=== PATIENT | female | born 1965 | race Caucasian/White ===

== ENCOUNTER → 2020-03-25 16:26 | Outpatient (CLI) | payer BC, SELFPAY ==
--- NOTE | ~2020-03-25 | MM_ITS ---
EXAMINATION: MM screening [facility] BI w [place] HISTORY: Screening mammogram TECHNIQUE: Craniocaudal and mediolateral oblique 3-D tomosynthesis images were obtained and synthetic 2-D images were generated. CAD analysis was submitted and interpreted. COMPARISON: 03/20/2019, 07/14/2018, 07/10/2017 BREAST PARENCHYMAL COMPOSITION: There are scattered areas of fibroglandular density. FINDINGS: There is no evidence of suspicious mass, calcification, or architectural distortion to sugg est malignancy in either breast. There has been no suspicious interval change. IMPRESSION: 1. No mammographic evidence of malignancy. 2. Recommend routine screening mammography in one year. BI-RADS Category 1: Negative Reviewed, dictated and finalized at location A.
== END ==
PROVIDERS: Visit Provider Obstetrics & Gynecology Gynecology
DX: Z12.31 Encounter for screening mammogram for malignant neoplasm of breast (principal)
CPT/HCPCS: 77063; 77067

== ENCOUNTER → 2021-03-27 16:25 | Outpatient (CLI) | payer BC, SELFPAY ==
--- NOTE | ~2021-03-27 | MM_ITS ---
EXAMINATION: MM screening [facility] BI w [place] HISTORY: Screening mammogram TECHNIQUE: Craniocaudal and mediolateral oblique 3-D tomosynthesis images were obtained and synthetic 2-D images were generated. CAD analysis was submitted and interpreted. COMPARISON: 03/25/2020, 03/20/2019, 07/14/2018 BREAST PARENCHYMAL COMPOSITION: There are scattered areas of fibroglandular density. FINDINGS: There is no evidence of suspicious mass, calcification, or architectural distortion to sugg est malignancy in either breast. There has been no suspicious interval change. IMPRESSION: 1. No mammographic evidence of malignancy. 2. Recommend routine screening mammography in one year. BI-RADS Category 1: Negative Reviewed, dictated and finalized at location A.
== END ==
PROVIDERS: Visit Provider Obstetrics & Gynecology Gynecology
DX: Z12.31 Encounter for screening mammogram for malignant neoplasm of breast (principal)
CPT/HCPCS: 77063; 77067

== ENCOUNTER → 2021-05-14 18:12 | Outpatient (CLI) | payer BC, SELFPAY ==
--- NOTE | ~2021-05-14 | DEXA_ITS ---
Bone Density Report Name: Sandra Reyes Age: 55 Sex: Female Ethnicity: White Date of : 1965 Indication: postmenopausal; screening for osteoporosis; Referring Provider: DUNG MUÑIZ Study: Bone densitometry was performed. Exam Date: May 14, 2021 Accession number: [id number] Bone Density: Region BMD T-score Z-score Classification AP Spine (L1-L4) 1.315 2.4 3.6 Normal Femoral Neck (Left) 0.992 1.3 2.4 Normal Total Hip (Left) 1.275 2.7 3.4 Normal Femoral Neck (Right) 0.991 1.3 2.4 Normal Total Hip (Right) 1.179 1.9 2.7 Normal Total Hip Mean 1.227 2.3 3.1 Normal World Health Organization criteria for BMD impression classify patients as: Normal (T-score at or above -1.0), Osteopenia (T-score between -1.0 and -2.5), or Osteoporosis (T-score at or below -2.5). 10-year Fracture Risk: FRAX not reported because: All T-scores for Spine Total, Hip Total, Femoral Neck at or above -1.0 Previous Exams: Region Exam Age BMD T-score BMD Change BMD Change Date g/cm2 vs Baseline vs Previous AP Spine(L1-L4) 05/14/2021 55 1.315 2.4 0.066* 0.066* 07/31/2016 50 1.250 1.8 Total Hip(Left) 05/14/2021 55 1.275 2.7 -0.006 -0.006 07/31/2016 50 1.281 2.8 Total Hip(Right) 05/14/2021 55 1.179 1.9 -0.049* -0.049* 07/31/2016 50 1.228 2.3 *Denotes significance at 95% confidence level, LSC for AP Spine = 0.022 g/cm2, LSC for Total Hip = 0.027 g/cm2 Clinical Information Provided by Patient: Has used the following medications: Vitamin D, Calcium, MTV Patient maximum height was 69.5 Menopause Age: 49 No regular weight bearing exercise Does not regularly consume dairy products Drinks caffeinated beverages Onset of menses at age 10 Number of children 1 Impression: The patient has normal bone mass. The BMD for the Total Hip(Right) decreased, changing by -0.049 since the last DXA exam. Discussion: LOW RISK OF FRACTURE; BONE DENSITY IS WELL ABOVE THE MINIMUM DESIRABLE LEVEL AND ABOVE AVERAGE FOR AGE AND SEX AT ALL SKELETAL SITES TESTED. This person's bone density is above expected limits for age and sex. This is rarely clinically significant, but should be pursued if there are significant musculoskeletal complaints. The patient should follow a healthful lifestyle (good nutrition with adequate calcium and vitamin D, and appropriate weight-bearing exercise). Follow-Up: Consider repe
== END ==
PROVIDERS: Visit Provider Obstetrics & Gynecology Gynecology
DX: Z78.0 Asymptomatic menopausal state (principal)
CPT/HCPCS: 77080

== ENCOUNTER → 2021-09-17 07:54 | Outpatient (CLI) | payer BC, SELFPAY ==
--- NOTE | ~2021-09-17 | MMUS_ITS ---
EXAMINATION: MM diagnostic [facility] LT w [place], US breast LT complete HISTORY: Left breast pain TECHNIQUE: Additional 3-D tomosynthesis images of left breast were performed and synthetic 2-D images were generated. CAD analysis was submitted and interpreted. High resolution complete left breast ult rasound was performed. COMPARISON: Comparison to multiple prior studies sequentially, with oldest reviewed study dated 09/2015. BREAST PARENCHYMAL COMPOSITION: Breast composed of scattered areas of fibroglandular density. FINDINGS: MAMMOGRAPHIC FINDINGS: There are no new masses, calcifications or architectural distortion in the left breast to suggest mal ignancy. ULTRASOUND: Complete US of all 4 quadrants of the left breast and retroareolar region was reviewed. Normal heterogeneous echotexture without focal solid or cystic mass. IMPRESSION: 1. No evidence for malignancy in the left breast. 2. . Routine yearly screening mammogram and regular clinical breast examination are recommended. BI-RADS Category 1: Negative Reviewed, dictated and finalized at location A. STORAGE ATTENDANT IMPRESSION: 1. No evidence for malignancy in the left breast. 2. . Routine yearly screening mammogram and regular clinical breast examination are recommended. BI-RADS Category 1: Negative
== END ==
PROVIDERS: Visit Provider Obstetrics & Gynecology Gynecology
DX: R92.8 Other abnormal and inconclusive findings on diagnostic imaging of breast (principal)
CPT/HCPCS: 76641; 77061; 77065; G0279

== ENCOUNTER → 2022-04-15 16:07 | Outpatient (CLI) | payer BC, SELFPAY ==
--- NOTE | ~2022-04-15 | MM_ITS ---
EXAMINATION: MM screening [facility] BI w [place] HISTORY: Screening mammogram TECHNIQUE: Craniocaudal and mediolateral oblique 3-D tomosynthesis images were obtained and synthetic 2-D images were generated. CAD analysis was submitted and interpreted. COMPARISON: 09/17/2021 diagnostic left mammogram and complete left breast ultrasound 03/27/2021, 03/21/2020, 03/20/2019 bilateral screening mammogram examinations BREAST PARENCHYMAL COMPOSITION: There are scattered areas of fibroglandular density. FINDINGS: There is no evidence of suspicious mass, calcification, or architectural distortion to sugg est malignancy in either breast. There has been no suspicious interval change. IMPRESSION: 1. No mammographic evidence of malignancy. 2. Recommend routine screening mammography in one year. BI-RADS Category 1: Negative Reviewed, dictated and finalized at location A.
== END ==
PROVIDERS: PCP Obstetrics & Gynecology Gynecology; Visit Provider Obstetrics & Gynecology Gynecology
DX: Z12.31 Encounter for screening mammogram for malignant neoplasm of breast (principal)
CPT/HCPCS: 77063; 77067

== ENCOUNTER → 2023-05-18 08:35 | Outpatient (CLI) | payer BC, SELFPAY ==
--- NOTE | ~2023-05-18 | MM_ITS ---
EXAMINATION: MM screening [facility] BI w [place] HISTORY: Screening TECHNIQUE: Craniocaudal and mediolateral oblique 3-D tomosynthesis images were obtained and synthetic 2-D images were generated. CAD analysis was submitted and interpreted. COMPARISON: Comparison to multiple prior studies sequentially, with oldest reviewed study dated 07/02. BREAST PARENCHYMAL COMPOSITION: There are scattered areas of fibroglandular density. FINDINGS: There is no evidence of suspicious mass, calcification, or architectural distortion to sugg est malignancy in either breast. There has been no suspicious interval change. IMPRESSION: 1. No mammographic evidence of malignancy. 2. Recommend routine screening mammography in one year. BI-RADS Category 1: Negative Reviewed, dictated and finalized at location A.
== END ==
PROVIDERS: PCP Obstetrics & Gynecology Gynecology; Visit Provider Obstetrics & Gynecology Gynecology
DX: Z12.31 Encounter for screening mammogram for malignant neoplasm of breast (principal)
CPT/HCPCS: 77063; 77067

== ENCOUNTER 2024-02-12 07:54 | Outpatient (CLI) | payer OTHER, SELFPAY ==
--- NOTE | ~2024-02-12 | MM_ITS ---
EXAMINATION: MM screening [facility] BI w [place] HISTORY: Screening TECHNIQUE: Craniocaudal and mediolateral oblique 3-D tomosynthesis images were obtained and synthetic 2-D images were generated. CAD analysis was submitted and interpreted. COMPARISON: Comparison to multiple prior studies sequentially, with oldest reviewed study dated 03/25. BREAST PARENCHYMAL COMPOSITION: Not dense: There are scattered areas of fibroglandular density. FINDINGS: There is a developing asymmetry in the outer aspect of the left breast on CC view. The righ t breast is stable without evidence for malignancy. IMPRESSION: 1. Developing left breast asymmetry. 2. Additional mammographic views and possible breast ultrasound are recommended. BI-RADS Category 0: Incomplete: Needs additional imaging evaluation. Reviewed, dictated and finalized at location B. IMPRESSION: 1. Developing left breast asymmetry. 2. Additional mammographic views and possible breast ultrasound are recommended . BI-RADS Category 0: Incomplete: Needs additional imaging evaluation.
== END 2024-02-12 07:55 ==
PROVIDERS: PCP Obstetrics & Gynecology Gynecology; Visit Provider Obstetrics & Gynecology Gynecology
DX: Z12.31 Encounter for screening mammogram for malignant neoplasm of breast (principal); R92.8 Other abnormal and inconclusive findings on diagnostic imaging of breast
CPT/HCPCS: 77063; 77067

== ENCOUNTER 2024-03-10 07:37 | Outpatient (CLI) | payer OTHER, SELFPAY ==
--- NOTE | ~2024-03-10 | MMUS_ITS ---
EXAMINATION: MM diagnostic [facility] LT w [place], US breast LT limited HISTORY: Follow-up left breast asymmetry TECHNIQUE: Additional 3-D tomosynthesis images of the left breast were performed and synthetic 2-D im ages were generated. CAD analysis was submitted and interpreted. High resolution Limited left breast ultrasound was performed. COMPARISON: Comparison to multiple prior studies sequentially, with oldest reviewed study dated 03/25. BREAST PARENCHYMAL COMPOSITION: Not dense: There are scattered areas of fibroglandular density. FINDINGS: MAMMOGRAPHIC FINDINGS: There is a developing asymmetry in the upper outer quadrant of the left breast anteriorly. No discret e mass or suspicious calcifications. ULTRASOUND: Limited left breast ultrasound: At 2:00 near the nipple there is an ill-defined hypoechoic mass with posterior shadowing and ill-defined margins measuring approximately 1.8 x 1.2 cm. No internal vascula rity. IMPRESSION: 1. Irregular shaped hypoechoic left breast mass at 2:00 near the nipple corresponding to the area of mammographic concern. 2. Ultrasound-guided left breast biopsy recommended. BI-RADS category 4, suspicious findings. Reviewed, dictated and finalized at location B. IMPRESSION: 1. Irregular shaped hypoechoic left breast mass at 2:00 near the nipple corresp onding to the area of mammographic concern. 2. Ultrasound-guided left breast biopsy recommended. BI-RADS category 4, suspicious findings.
== END 2024-03-10 07:38 ==
PROVIDERS: PCP Obstetrics & Gynecology Gynecology; Visit Provider Obstetrics & Gynecology Gynecology
DX: R92.8 Other abnormal and inconclusive findings on diagnostic imaging of breast (principal)
CPT/HCPCS: 76642; 77061; 77065; G0279

== ENCOUNTER 2024-05-26 00:59 | Day surgery (SDC) | payer OTHER, SELFPAY ==
[2024-05-10 13:34] VITALS: BMI 51.1
[2024-05-26 06:24] VITALS: BP 154/71; PULSE 78; RESP 20; TEMP 35.9; O2SAT 100; BMI 49.9
[2024-05-26] MEDS: LACTATED RINGERS 1,000 ML 150 ML IV CONT (06:39)
[2024-05-26 06:44] LABS: Glucose Point of Care 167 mg/dl (65-105)
--- NOTE | 2024-05-26 06:58 | P.PNAN_ITS ---
Anes - Initial Pre Proc Eval Procedure: Operation Date: 05/26/24 07:30 Proposed Procedures p Colonoscopy - Alexandro Dee MD Date/Time: 05/26/24 06:58 Surgeon: Alexandro Dee MD Pre Op Diagnosis: Personal history colon polyps Patient Data Age: 58 Gender: F Height: 1.75 m Weight: 153.5 kg Last Vital Signs Temp 96.6 F L 05/26/24 06:24 Pulse 78 05/26/24 06:24 Resp 20 05/26/24 06:24 BP 154/71 H 05/26/24 06:24 Pulse Ox 100 05/26/24 06:24 O2 Del Method Room Air 05/26/24 06:24 Allergies Allergy/AdvReac Type Severity Reaction Status Date / Time Penicillins Allergy Severe RASH Verified 05/26/24 06:22 pioglitazone [From Actos] Allergy Intermediate Rash Verified 05/26/24 06:22 Home Medications Medication Instructions Recorded Confirmed Type empagliflozin 25 mg tablet 25 mg PO DAILY 06/03/23 05/26/24 History (Jardiance) glipizide 10 mg tablet, extended 10 mg PO DAILY 06/03/23 05/26/24 History release 24 hr insulin degludec 200 unit/mL (3 48 unit subcut DAILY 06/03/23 05/26/24 History mL) subcutaneous pen (Tresiba FlexTouch U-200 insulin) lisinopril 20 mg tablet 20 mg PO DAILY 06/03/23 05/26/24 History metformin 1,000 mg tablet 1,000 mg PO DAILY 06/03/23 05/26/24 History simvastatin 40 mg tablet 40 mg PO DAILY 06/03/23 05/26/24 History Laboratory Tests 05/26/24 06:38 POC Capillary Glucose 167 H mg/dl (65-105) Patient hx anesthesia problems: none Family hx anesthesia problems: none Results Review: All pre-operative results and documents have been reviewed as part of the pre- operative evaluation. [facility] Social History Social History Smoking status: Never smoker Substance use type: does not use Living arrangements: alone Spiritual care concerns: No Anes - Eval Final PreProcedure Day of Procedure 10/25/24 06:58 Patient weight: super morbidly obese Heart: regular rate and rhythm Lungs: clear to auscultation Airway: Mallampati scale class 1 Neurological: alert and oriented Last oral intake: >/= 8 hours ASA classification: III Emergent: no Anesthetic plan: proceed Anesthesia type and monitoring: general GIVS and standard monitoring Results Review: All pre-operative results and documents have been reviewed as part of the pre- operative evaluation. HTN, hyperlipidemia, DM fsbs 167. Informed Consent: The patient's anesthetic plan and its attendant risks and benefits were discussed with the patient/family/POA. Questions were solicited and answers provided to the satisfaction of the patient/family/POA.
--- NOTE | 2024-05-26 07:12 | PM.HPGS ---
History of Present Illness History of Present Illness Consent: Risks, benefits, and alternatives have been discussed and questions answered. Patient agrees to proceed with procedure. Chief complaint: Personal history colon polyps Narrative: Sandra Reyes is a 58 year old female with colon polyp 6 years ago Review of Systems Review of Systems: All systems reviewed & are unremarkable except as noted in HPI and below PMFSH Past Medical History Medical History (Updated 05/26/24 @ 07:13 by Alexandro Dee MD) Colon polyp Social History Social History Smoking status: Never smoker Substance use type: does not use Living arrangements: alone Spiritual care concerns: No Meds Home Medications and Allergies Home Medications Medication Instructions Recorded Confirmed Type empagliflozin 25 mg tablet 25 mg PO DAILY 06/03/23 05/26/24 History (Jardiance) glipizide 10 mg tablet, extended 10 mg PO DAILY 06/03/23 05/26/24 History release 24 hr insulin degludec 200 unit/mL (3 48 unit subcut DAILY 06/03/23 05/26/24 History mL) subcutaneous pen (Tresiba FlexTouch U-200 insulin) lisinopril 20 mg tablet 20 mg PO DAILY 06/03/23 05/26/24 History metformin 1,000 mg tablet 1,000 mg PO DAILY 06/03/23 05/26/24 History simvastatin 40 mg tablet 40 mg PO DAILY 06/03/23 05/26/24 History Allergies Allergy/AdvReac Type Severity Reaction Status Date / Time Penicillins Allergy Severe RASH Verified 05/26/24 06:22 pioglitazone [From Actos] Allergy Intermediate Rash Verified 05/26/24 06:22 Vital Signs Vital Signs - 24 hr 05/26/24 06:24 Temperature 96.6 F L Pulse Rate 78 Respiratory Rate 20 Blood Pressure 154/71 H Pulse Oximetry 100 Oxygen Delivery Room Air Exam Const: General: comfortable and no acute distress HENMT: Face/Nose/Sinus: Normal nares present Eyes: General: appearance normal, both eyes and all related structures Neck: Neck: no JVD Resp: Auscultation: clear to auscultation bilaterally Cardio: Rate: regular rate Rhythm: regular rhythm GI: Inspection: non-distended GI Palp: Yes Soft to palpation Skin: General skin exam: normal color Neuro: General: gait normal Speech: normal speech Extrem: General: normal to inspection Psych: Mental Status: mental status grossly normal Assessment and Plan Assessment and plan (1) Colon polyp: Code(s): K63.5 - Polyp of colon Status: Acute Assessment and Plan: colonoscopy
[2024-05-26 07:31] VITALS: BP 126/42; PULSE 72; RESP 20; O2SAT 100
[2024-05-26 07:41] VITALS: BP 130/51; PULSE 66; RESP 21; O2SAT 100
[2024-05-26 07:51] VITALS: BP 135/52; PULSE 66; RESP 19; O2SAT 100
--- NOTE | 2024-05-26 07:58 | SUR.PHASEII ---
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 Notified Luis. States she's just now leaving her house. Will call when she gets here.
== END 2024-05-26 08:01 | disposition home or self-care (01) ==
PROVIDERS: Referring Provider Obstetrics & Gynecology Gynecology; Visit Provider Internal Medicine Gastroenterology
PROC: 0DJD8ZZ Inspection of Lower Intestinal Tract, Via Natural or Artificial Opening Endoscopic (ICD-10-PCS; CPT 45378; principal; 2024-05-26 07:30)
DX: Z12.11 Encounter for screening for malignant neoplasm of colon (principal); K63.5 Polyp of colon; K64.8 Other hemorrhoids; E66.01 Morbid (severe) obesity due to excess calories; Z68.43 Body mass index [BMI] 50.0-59.9, adult; Z79.84 Long term (current) use of oral hypoglycemic drugs; Z79.4 Long term (current) use of insulin
CPT/HCPCS: 45385; 82948; 88305; J2704; J7120